=== PATIENT | male | born 1975 | race Caucasian/White ===

== ENCOUNTER 2021-06-14 13:02 | Outpatient (CLI) | payer OTHER | END 2021-06-14 13:03 | disposition home or self-care (01) | LOC: TBSIIMAG 13:02 | PROVIDERS: ATTEND Physician Assistant | DX: M54.16 Radiculopathy, lumbar region (principal); M48.061 Spinal stenosis, lumbar region without neurogenic claudication; S32.019D Unspecified fracture of first lumbar vertebra, subsequent encounter for fracture with routine healing; S32.049D Unspecified fracture of fourth lumbar vertebra, subsequent encounter for fracture with routine healing; S22.089D Unspecified fracture of T11-T12 vertebra, subsequent encounter for fracture with routine healing; Z98.890 Other specified postprocedural states | CPT/HCPCS: 72100 ==

== ENCOUNTER 2021-07-26 12:46 | Outpatient (CLI) | payer OTHER | END 2021-07-26 12:47 | disposition home or self-care (01) | LOC: TBSIIMAG 12:46 | PROVIDERS: ATTEND Surgery | DX: S34.109A Unspecified injury to unspecified level of lumbar spinal cord, initial encounter (principal); M54.50 Low back pain, unspecified; M43.8X6 Other specified deforming dorsopathies, lumbar region; M43.8X4 Other specified deforming dorsopathies, thoracic region; Z98.890 Other specified postprocedural states | CPT/HCPCS: 72072; 72100 ==

== ENCOUNTER 2021-09-06 13:47 | Outpatient (CLI) | payer BC | END 2021-09-06 13:48 | disposition home or self-care (01) | LOC: TBSIIMAG 13:47 | PROVIDERS: ATTEND Surgery | DX: S32.009A Unspecified fracture of unspecified lumbar vertebra, initial encounter for closed fracture (principal); M54.9 Dorsalgia, unspecified; Z98.890 Other specified postprocedural states | CPT/HCPCS: 72072; 72100 ==

== ENCOUNTER 2021-12-15 12:00 | Outpatient (CLI) | payer OTHER | END 2021-12-15 12:01 | disposition home or self-care (01) | LOC: RAD 12:00 | PROVIDERS: ATTEND Surgery | DX: M54.6 Pain in thoracic spine (principal); S22.089A Unspecified fracture of T11-T12 vertebra, initial encounter for closed fracture; S32.019A Unspecified fracture of first lumbar vertebra, initial encounter for closed fracture | CPT/HCPCS: 72072 ==

== ENCOUNTER 2021-12-23 10:22 | Outpatient (CLI) | payer OTHER | END 2021-12-23 10:23 | disposition home or self-care (01) | LOC: TBSIIMAG 10:22 | PROVIDERS: ATTEND Surgery | DX: M54.50 Low back pain, unspecified (principal) | CPT/HCPCS: 72100 ==

== ENCOUNTER 2023-01-03 11:06 | Outpatient (CLI) | payer BC | END 2023-01-03 11:07 | disposition home or self-care (01) | LOC: CT 11:06 | PROVIDERS: ATTEND Surgery | DX: S22.089A Unspecified fracture of T11-T12 vertebra, initial encounter for closed fracture (principal); S32.009A Unspecified fracture of unspecified lumbar vertebra, initial encounter for closed fracture; M47.816 Spondylosis without myelopathy or radiculopathy, lumbar region; M43.8X5 Other specified deforming dorsopathies, thoracolumbar region; Z98.1 Arthrodesis status | CPT/HCPCS: 72100; 72131; 72148 ==